=== PATIENT | female | born 1985 | race Hispanic/Latino ===

== ENCOUNTER 2017-06-05 22:03 | Emergency (ER) | payer OTHER ==
[2017-06-05 22:20] VITALS: BP 140/99; PULSE 80; RESP 22; TEMP 97.7; O2SAT 100
--- NOTE | 2017-06-05 22:59 | ED PDOC ---
HPI: Skin/Bite Injury Time Seen by Provider: 06/05/17 22:08 Chief Complaint (Nursing): Abnormal Skin Integrity Chief Complaint (Provider): Itchy rash for 3 days - Trunk History Per: Patient History/Exam Limitations: no limitations Onset/Duration Of Symptoms: Days Current Symptoms Are (Timing): Still Present Quality Of Symptoms: Itching Severity: Moderate Pain Scale Rating Of: 5 Additional Complaint(s): Pt reports rash x 3 days. Pt states she got botox 7 days ago. PT states that she has never had it before. Pt states it began on her abdomen and is not on her abdomen and back. Past Medical History Reviewed: Historical Data, Nursing Documentation, Vital Signs Vital Signs: Last Vital Signs Temp 97.7 F 06/05/17 22:15 Pulse 80 06/05/17 22:15 Resp 22 06/05/17 22:15 BP 140/99 H 06/05/17 22:15 Pulse Ox 100 06/05/17 23:00 - Medical History PMH: No Chronic Diseases - Surgical History Surgical History: No Surg Hx - Family History Family History: States: No Known Family Hx - Living Arrangements Living Arrangements: With Family - Social History Current smoker - smoking cessation education provided: No Alcohol: Occasional Drugs: Denies - Home Medications Home Medications: Ambulatory Orders Medication Instructions Recorded Famotidine [Pepcid] 20 mg PO DAILY #5 tab 06/05/17 predniSONE [predniSONE Tab] 20 mg PO DAILY #12 tab 06/05/17 - Allergies Allergies/Adverse Reactions: Allergies Allergy/AdvReac Type Severity Reaction Status Date / Time No Known Allergies Allergy Verified 06/05/17 22:54 Review of Systems ROS Statement: Except As Marked, All Systems Reviewed And Found Negative Skin: Positive for: Rash Physical Exam - Reviewed Nursing Documentation Reviewed: Yes Vital Signs Reviewed: Yes - Physical Exam Appears: Positive for: Well, Non-toxic, No Acute Distress Head Exam: Positive for: ATRAUMATIC, NORMAL INSPECTION, NORMOCEPHALIC Skin: Positive for: Warm, Rash ((+) raised oval shaped lesions with scaly border on the trunk). Negative for: Normal Color Eye Exam: Positive for: Normal appearance ENT: Positive for: Normal ENT Inspection Neck: Positive for: Normal, Painless ROM Cardiovascular/Chest: Positive for: Regular Rate, Rhythm Respiratory: Positive for: CNT, Normal Breath Sounds Gastrointestinal/Abdominal: Positive for: Normal Exam, Bowel Sounds, Soft Back: Positive for: Normal Inspection Extremity: Positive for: Normal ROM Neurologic/Psych: Positive for: Alert, Oriented - ECG O2 Sat by Pulse Oximetry: 100 Disposition - Clinical Impression Clinical Impression: Rash - Patient ED Disposition Is Patient to be Admitted: No Counseled Patient/Family Regarding: Diagnosis, Need For Followup, Rx Given - Disposition Referrals: [facility] [place] [Outside] Disposition: Routine/Home Disposition Time: 22:53 Condition: GOOD Prescriptions: Famotidine [Pepcid] 20 mg PO DAILY #5 tab predniSONE [predniSONE Tab] 20 mg PO DAILY #12 tab Instructions: Pityriasis rosea (ED)
== END 2017-06-05 23:29 | disposition home or self-care (01) ==
LOC: H.ER 22:03
DX: R21 Rash and other nonspecific skin eruption (principal)